=== PATIENT | male | born 1960 | race Caucasian/White ===

== ENCOUNTER 2018-01-10 08:06 | Emergency (ER) | payer OTHER ==
[~2018-01-10] VITALS: Ht 172.7 cm; Wt 84.5 kg
[2018-01-10] MEDS ORDERED: LISI-660 PO (08:14)
[2018-01-10] MEDS ORDERED: GLIP5 PO (08:14)
[2018-01-10] MEDS ORDERED: METF500T6 PO (08:14)
[2018-01-10 08:28] LABS: GLUCOSE,POINT OF CARE 227 MG/DL (70-110)
[2018-01-10 09:16] LABS: APPEARANCE,URINE CLEAR (CLEAR); GLUCOSE, URINE (UA) 500 mg/dL (NEGATIVE); KETONES,URINE 15 mg/dL (NEGATIVE); LEUKOCYTE ESTERASE ,URINE NEGATIVE (NEGATIVE); NITRATE,URINE NEGATIVE (NEGATIVE); OCCULT BLOOD,URINE NEGATIVE (NEGATIVE); PROTEIN,URINE SEE CONFIRM (NEGATIVE)
[2018-01-10 09:25] LABS: BILIRUBIN,URINE PRELIM. POSITIVE (NEGATIVE)
[2018-01-10 09:25] LABS: BASOPHILS % (AUTO) 0.4 % (0.0-2.0); EOSINOPHILS % (AUTO) 0.5 % (1.0-6.0); HEMATOCRIT 45.7 % (41-53); HEMOGLOBIN 15.8 g/dL (13.5-17.5); LYMPHOCYTES # (AUTO) 1.8 K/uL (1.0-4.8); LYMPHOCYTES % (AUTO) 20.7 % (22.0-44.0); MEAN CORPUSCULAR HGB CONC 34.7 G/dL (31.0-37.0); MEAN CORPUSCULAR VOLUME 90 fL (80-100); MONOCYTES # (AUTO) 0.5 K/uL (0.1-1.0); MONOCYTES % (AUTO) 5.9 % (2.0-9.0); NEUTROPHILS # (AUTO) 6.4 K/uL (1.8-7.7); NEUTROPHILS % (AUTO) 72.5 % (40.0-70.0); PLATELET COUNT (AUTO) 190 K/uL (150-450)
[2018-01-10 09:29] LABS: BACTERIA,URINE Rare /HPF (None Seen); RBC,URINE None Seen /HPF (0-2); SULFOSALICYLIC ACID,URINE 2+ (Negative)
[2018-01-10 09:30] LABS: SQUAMOUS EPITHELIAL CELL,UR Rare /LPF (None Seen)
[2018-01-10] MEDS ORDERED: SODIUM CHLORIDE 0.9% 1,000 ML IV ONE (09:45)
[2018-01-10] MEDS ORDERED: KETOROLAC TROMETHAMINE 30 MG/ML VIAL IVP ONE (09:45)
[2018-01-10 09:54] LABS: ANION GAP 12 mmol/L (8-16); CALCIUM, TOTAL 9.1 mg/dL (8.8-10.5); CARBON DIOXIDE 28 mmol/L (22-29); CHLORIDE 101 mmol/L (98-107); CREATININE 0.93 mg/dL (0.60-1.30); GLOMERULAR FILTR. RATE CALC > 60 mL/min (>60); GLUCOSE,RANDOM 247 mg/dL (70-110); POTASSIUM 4.5 mmol/L (3.5-5.1); SODIUM SERUM 141 mmol/L (136-145); UREA NITROGEN, BLOOD 22 mg/dL (7-18)
[2018-01-10 09:56] LABS: ALANINE AMINOTRANSFERASE 22 U/L (12-78); ALBUMIN 3.9 g/dL (3.4-5.0); ALKALINE PHOSPHATASE 95 U/L (46-116); ASPARTATE AMINOTRANSFERASE 12 U/L (15-37); BILIRUBIN,TOTAL 0.7 mg/dL (0.1-1.0); TOTAL PROTEIN, SERUM 7.4 g/dL (6.4-8.2)
[2018-01-10 10:36] VITALS: BP 130/77
== END 2018-01-10 10:51 | disposition home or self-care (01) ==
LOC: EMS 08:09
DX: R10.31 Right lower quadrant pain (principal); E11.9 Type 2 diabetes mellitus without complications; F17.210 Nicotine dependence, cigarettes, uncomplicated; Z79.899 Other long term (current) drug therapy; Z79.84 Long term (current) use of oral hypoglycemic drugs
CPT/HCPCS: 36415; 80053; 81001; 82962; 85025; 96374; 99284; J1885; J7030

== ENCOUNTER 2024-12-21 14:22 | Inpatient (IN) | payer OTHER ==
[~2024-12-21] VITALS: Ht 170.2 cm; Wt 99.0 kg
[~2024-12-21 14:22] MED LIST: GLIP5TAB16 PO; LISI-892 PO; METF-1211 PO
[2024-12-21 15:01] LABS: GLUCOMETER DEV NAME(LOC) ER.7; GLUCOSE,POINT OF CARE 217 MG/DL (70-110)
[2024-12-21] MEDS ORDERED: IOHEXOL 300 MG/ML 100 ML VIAL ONE (16:07)
[2024-12-21] MEDS ORDERED: SODIUM CHLORIDE 0.9% 100 ML ONE (16:07)
[2024-12-21] MEDS ORDERED: 0.9% SODIUM CHLORIDE 10 ML SYRINGE IVP ONE (16:07)
[2024-12-21 16:22] LABS: PLATELET COUNT (AUTO) 198 K/uL (150-450); RED BLOOD CELL COUNT(AUTO) 4.49 MIL/uL (4.50-5.90); RED CELL DISTRIBUTION WIDTH 13.4 % (11.5-14.5); WHITE BLOOD COUNT (AUTO) 8.4 K/uL (4.5-11.0)
[2024-12-21 16:27] LABS: CALCIUM, TOTAL 8.3 mg/dL (8.8-10.5); CREATININE 1.31 mg/dL (0.60-1.30); GLOMERULAR FILTR. RATE CALC 55.0 mL/min (>60); GLUCOSE,RANDOM 207.0 mg/dL (70-110); SODIUM SERUM 142.0 mmol/L (136-145); UREA NITROGEN, BLOOD 23.0 mg/dL (7-18)
[2024-12-21 16:32] LABS: ASPARTATE AMINOTRANSFERASE 13.0 U/L (15-37); CHOL/HDL RATIO 3.6 (4.2-7.3); LDL CHOL (CALC.) 85.0 mg/dL (0-130); TOTAL PROTEIN, SERUM 6.6 g/dL (6.4-8.2)
[2024-12-21 16:37] LABS: TROPONIN I-HIGH SENSITIVITY 15 ng/L (<76)
[2024-12-21] MEDS ORDERED: ONDANSETRON HCL 4 MG/2 ML VIAL IVP PRN (18:00)
[2024-12-21] MEDS ORDERED: DEXTROSE 50%-WATER 25 GM/50 ML SYRINGE IVP PRN (18:15)
[2024-12-21] MEDS: ASPIRIN 81 MG CHEWABLE TABLET PO ONE (18:44)
[2024-12-21] MEDS: SODIUM CHLORIDE 0.9% 250 ML IV ONE (19:07)
[2024-12-21] MEDS: INSULIN GLARGINE,HUM.REC.ANLOG 100 UNITS/ML SQ SCH (19:36)
[2024-12-21 20:30] VITALS: BP 145/65; PULSE 73; RESP 18; TEMP 97.7; O2SAT 99
[2024-12-21] MEDS: DOCUSATE SODIUM 100 MG CAPSULE PO SCH (21:00)
[2024-12-21] MEDS: ATORVASTATIN CALCIUM 40 MG TABLET PO SCH (21:22)
[2024-12-21] MEDS: INSULIN LISPRO 100 UNITS/ML SQ PRN (21:25)
[2024-12-21 21:35] LABS: GLUCOMETER DEV NAME(LOC) 5N.1D; GLUCOSE,POINT OF CARE 179 MG/DL (70-110)
[2024-12-21 22:45] LABS: TROPONIN I-HIGH SENSITIVITY 26 ng/L (<76)
[2024-12-21 23:17] VITALS: BP 156/89; PULSE 93; RESP 18; TEMP 97.7; O2SAT 98
[2024-12-22] VITALS (7 sets, daily range): BP systolic 146–186; BP diastolic 60–84; PULSE 60–75; RESP 18–19; TEMP 97.7–98.2; O2SAT 97–99
[2024-12-22] MEDS: HEPARIN SODIUM,PORCINE 5,000 UNITS/ML VIAL SQ SCH (01:10)
[2024-12-22 06:17] LABS: PLATELET COUNT (AUTO) 214 K/uL (150-450); RED BLOOD CELL COUNT(AUTO) 4.67 MIL/uL (4.50-5.90); RED CELL DISTRIBUTION WIDTH 13.5 % (11.5-14.5); WHITE BLOOD COUNT (AUTO) 7.9 K/uL (4.5-11.0)
[2024-12-22 06:46] LABS: GLUCOMETER DEV NAME(LOC) 5S.2D; GLUCOSE,POINT OF CARE 183 MG/DL (70-110)
[2024-12-22 07:06] LABS: CALCIUM, TOTAL 8.6 mg/dL (8.8-10.5); CREATININE 1.11 mg/dL (0.60-1.30); GLOMERULAR FILTR. RATE CALC > 60 mL/min (>60); GLUCOSE,RANDOM 164 mg/dL (70-110); SODIUM SERUM 142 mmol/L (136-145); UREA NITROGEN, BLOOD 19 mg/dL (7-18)
[2024-12-22 07:07] LABS: TROPONIN I-HIGH SENSITIVITY 37 ng/L (<76)
[2024-12-22] MEDS: ASPIRIN 81 MG CHEWABLE TABLET PO SCH (08:41)
[2024-12-22] MEDS: CLOPIDOGREL BISULFATE 75 MG TABLET PO SCH (08:41)
[2024-12-22 17:35] LABS: GLUCOMETER DEV NAME(LOC) 5N.1D; GLUCOSE,POINT OF CARE 175 MG/DL (70-110)
[2024-12-22 17:35] LABS: GLUCOMETER DEV NAME(LOC) 5N.1D; GLUCOSE,POINT OF CARE 296 MG/DL (70-110)
[2024-12-23 03:09] VITALS: BP 137/61; PULSE 61; RESP 18; TEMP 97.9; O2SAT 98
[2024-12-23 08:24] VITALS: BP 161/84; PULSE 62; RESP 18; TEMP 97.5; O2SAT 98
[2024-12-23] MEDS ORDERED: EMPA10TA3 PO (11:19)
[2024-12-23] MEDS ORDERED: ASPI-1444 PO (11:20)
[2024-12-23] MEDS ORDERED: LOSA-381 PO (11:23)
[2024-12-23 11:27] VITALS: BP 180/94; PULSE 68; RESP 19; TEMP 97.5; O2SAT 99
[2024-12-23 11:30] LABS: GLUCOMETER DEV NAME(LOC) 5N.1D; GLUCOSE,POINT OF CARE 140 MG/DL (70-110)
[2024-12-23 11:30] LABS: GLUCOMETER DEV NAME(LOC) 5S.2D; GLUCOSE,POINT OF CARE 303 MG/DL (70-110)
[2024-12-23 12:10] LABS: GLUCOMETER DEV NAME(LOC) 5N.1D; GLUCOSE,POINT OF CARE 234 MG/DL (70-110)
== END 2024-12-23 15:00 | disposition home or self-care (01) | DRG 199 ==
LOC: EMS 14:22 → EDH 18:00 → 5S 20:20
PROVIDERS: ADMIT Internal Medicine; ATTEND Internal Medicine
DX: I16.1 Hypertensive emergency (principal); N17.9 Acute kidney failure, unspecified; E11.9 Type 2 diabetes mellitus without complications; R79.89 Other specified abnormal findings of blood chemistry; F17.210 Nicotine dependence, cigarettes, uncomplicated; I10 Essential (primary) hypertension; Z83.3 Family history of diabetes mellitus
CPT/HCPCS: 70496; 70498; 70551; 71045; 80048; 80053; 80061; 82948; 82962; 83036; 83735; 84484; 85025; 85610; 85730; 86850; 86900; 86901; 92610; 93005; 93306; 96361; 96372; 96374; 96375; 97161; 99291; J0360; J1644; J1815; J7050; Q9967; 36415-L1; 36415-TC; 70450; 70450-TC